=== PATIENT | male | born 1965 | race American Indian/Alaskan Native ===

== ENCOUNTER 2016-10-21 21:13 | Emergency (ER) | payer OTHER ==
[2016-10-21 22:38] LABS: Basophils % (Auto) 0.6 % (0.0-1.8); Eosinophils % (Auto) 6.6 % (0.0-4.3); Hemoglobin 14.4 gm/dl (11.8-15.2); Mean Corpuscular HGB Conc 33 % (32-34); Mean Corpuscular Hemoglobin 28 pg (28-32); Mean Corpuscular Volume 87 fl (84-94); Platelet Count 236 K/mm3 (140-440); Red Blood Count 5.06 M/mm3 (3.65-5.03); White Blood Count 5.9 K/mm3 (4.5-11.0)
[2016-10-21 23:00] LABS: Anion Gap 18 mmol/L; BUN/Creatinine Ratio 12.72; Blood Urea Nitrogen 14 mg/dL (9-20); Calcium 8.8 mg/dL (8.4-10.2); Carbon Dioxide 26 mmol/L (22-30); Glucose 102 mg/dL (75-100); Potassium 3.9 mmol/L (3.6-5.0); Sodium 139 mmol/L (137-145)
[2016-10-22] MEDS ORDERED: APRESOLINE IV ONE (04:41)
--- NOTE | 2016-10-22 04:47 | Emergency Department Report ---
ED General Adult HPI - General Chief complaint: Chest Pain Stated complaint: CHEST PAIN/SOB Time Seen by Provider: 10/22/16 03:43 Source: patient, RN notes reviewed, old records reviewed Mode of arrival: Ambulatory Limitations: No Limitations - History of Present Illness Initial comments: This is a 50-year-old male. He is previously unknown to me. Has a past medical history of hypertension, obesity, congestive heart failure, obstructive sleep apnea. He has a defibrillator. Echocardiogram done in 2013 demonstrated an ejection fraction of 25-30%. May also have a history of COPD. Patient presents to the ER complaining of shortness of breath and fatigue. It has been present for 3-4 days. Patient endorses slight increase in orthopnea. He typically sleeps on 2 pillows, and over the past few days have been sleeping on 3 pillows. There is no leg pain. No recent trips greater than 4 hours, no recent hospital admissions. He reports compliance with his blood pressure medications, with the exception of clonidine. He reports that he is on clonidine, 0.1 mg every 6 hours, but does not take it that frequently because he does not like the way it makes him feel. He has chronic discomfort over his left-sided defibrillator site for months. It is not new, worsening or different. He reports that he does not have a CPAP or BiPAP machine, and has not had a formal sleep study. -: Gradual Severity scale (0 -10): 0 Consistency: intermittent Improves with: rest Worsens with: movement Associated Symptoms: shortness of breath. denies: confusion, diaphoresis, fever /chills, headaches, loss of appetite - Related Data Previous Rx's Medication Instructions Recorded Last Taken Type Potassium Chloride [K-Dur] 20 meq PO QDAY #30 tablet 06/18/14 06/08/16 Rx cloNIDine [Catapres] 0.2 mg PO TID #90 tablet 06/18/14 06/08/16 Rx Carvedilol [Coreg] 12.5 mg PO BID #60 tablet 07/23/14 06/08/16 Rx Furosemide [Lasix] 40 mg PO BID #60 tablet 07/23/14 06/08/16 Rx Lisinopril [Zestril TAB] 40 mg PO QDAY #30 tablet 07/23/14 06/08/16 Rx Allergies Allergy/AdvReac Type Severity Reaction Status Date / Time No Known Allergies Allergy Verified 01/25/15 16:17 ED Review of Systems ROS: Stated complaint: CHEST PAIN/SOB Other details as noted in HPI Constitutional: malaise, weakness Eyes: denies: vision change ENT: denies: epistaxis Respiratory: shortness of breath Cardiovascular: dyspnea on exertion Gastrointestinal: denies: abdominal pain, nausea, diarrhea Genitourinary: denies: urgency, dysuria Musculoskeletal: denies: back pain, joint swelling, arthralgia Neurological: weakness. denies: headache, numbness, paresthesias, confusion, abnormal gait ED Past Medical Hx - Past Medical History Hx Hypertension: Yes Hx Heart Attack/AMI: Yes Hx Congestive Heart Failure: Yes Hx COPD: Yes Additional medical history: sleep apnea needs cpap - Surgical History Past Surgical History?: Yes Hx Pacemaker: Yes Hx Internal Defibrillator: Yes - Social History Smoking Status: Former Smoker Substance Use Type: None - Medications Home Medications: Home Medications Medication Instructions Recorded Confirmed Last Taken Type Potassium Chloride [K-Dur] 20 meq PO QDAY #30 tablet 06/18/14 07/18/14 06/08/16 Rx cloNIDine [Catapres] 0.2 mg PO TID #90 tablet 06/18/14 07/18/14 06/08/16 Rx Carvedilol [Coreg] 12.5 mg PO BID #60 tablet 07/23/14 06/08/16 Rx Furosemide [Lasix] 40 mg PO BID #60 tablet 07/23/14 06/08/16 Rx Lisinopril [Zestril TAB] 40 mg PO QDAY #30 tablet 07/23/14 06/08/16 Rx ED Physical Exam - General Limitations: No Limitations General appearance: alert, in no apparent distress - Head Head exam: Present: atraumatic, normocephalic - Eye Eye exam: Present: normal appearance, EOMI. Absent: nystagmus - ENT ENT exam: Present: normal exam, normal orophraynx, mucous membranes moist, normal external ear exam - Neck Neck exam: Present: normal inspection, full ROM. Absent: tenderness, meningismus - Respiratory Respiratory exam: Present: normal lung sounds bilaterally. Absent: respiratory distress, wheezes, rales, rhonchi, stridor, chest wall tenderness - Cardiovascular Cardiovascular Exam: Present: regular rate, normal rhythm, normal heart sounds. Absent: bradycardia, tachycardia, irregular rhythm, systolic murmur, diastolic murmur, rubs, gallop - GI/Abdominal GI/Abdominal exam: Present: soft, normal bowel sounds. Absent: distended, tenderness, guarding, rebound, rigid, pulsatile mass - Rectal Rectal exam: Present: deferred - Extremities Exam Extremities exam: Present: normal inspection, full ROM, normal capillary refill. Absent: tenderness, pedal edema, joint swelling, calf tenderness - Back Exam Back exam: Present: normal inspection, full ROM. Absent: tenderness, CVA tenderness (R), CVA tenderness (L), muscle spasm, paraspinal tenderness, vertebral tenderness - Neurological Exam Neurological exam: Present: alert, oriented X3, normal gait, other (Extraocular movements intact. Tongue midline. No facial droop. Facial sensation intact to light touch in the V1, V2, V3 distribution bilaterally. 5 and 5 strength in 4 extremities.. Sensation is intact to light touch in 4 extremities.). Absent : motor sensory deficit - Psychiatric Psychiatric exam: Present: normal affect, normal mood - Skin Skin exam: Present: warm, dry, intact, normal color. Absent: rash ED Course Vital Signs 10/21/16 10/21/16 21:32 21:38 Temperature 98.5 F Pulse Rate 78 76 Respiratory 18 16 Rate Blood Pressure 202/120 Blood Pressure 188/124 [Left] O2 Sat by Pulse 100 97 Oximetry - Reevaluation(s) Reevaluation #1: 10/22/16 04:44 Differential diagnosis: Chronic cardiomyopathy, obstructive sleep apnea, pulmonary hypertension, pneumonia, congestive heart failure, multifactorial shortness of breath Assessment and plan: 50-year-old male with shortness of breath that is acute on chronic. He is afebrile with reassuring vital signs, with the exception of elevated blood pressure. There are no pulmonary embolus or DVT risk factors, he is low risk by well's criteria, and he is perc negative. He has no crackles , rales or rhonchi. The patient is placed on a portable pulse oximeter, and I personally ambulated him around the emergency department, and he does not desaturate. He speaks in full sentences while walking at a brisk pace, and appears quite comfortable. X-ray of the chest is not consistent with pneumonia or congestive heart failure. His laboratory studies do not suggest this as well. His EKG is morphologically abnormal, appears essentially unchanged from his prior EKG, but I find the patient to be low risk by HEART score. Troponins are negative 3. His blood pressures improved with a dose of hydralazine. Most likely the patient's shortness of breath is multifactorial. I had an extensive discussion with the patient. Patient prefers to follow-up as an outpatient with his personal injury attorney, and reports that he will follow up with outpatient pulmonology for a sleep study. Through shared decision-making, and the patient and I have agreed to discharge him to follow-up with his outpatient personal injury attorney. Patient is reliable, understands that he is at low risk for major adverse cardiac event at this time. Furthermore, I discussed this plan of care with the covering personal injury attorney for his primary personal injury attorney, Dr. Little, who agreed. Patient will be discharged. ED Medical Decision Making - Lab Data Result diagrams: 10/21/16 22:13 10/21/16 22:13 Vital Signs 10/21/16 10/21/16 10/22/16 21:32 21:38 04:45 Temperature 98.5 F Pulse Rate 78 76 87 Respiratory 18 16 Rate Blood Pressure 202/120 187/125 Blood Pressure 188/124 [Left] O2 Sat by Pulse 100 97 Oximetry Lab Results 10/21/16 10/21/16 10/22/16 Range/Units 22:13 22:13 00:51 WBC 5.9 (4.5-11.0) K/mm3 RBC 5.06 H (3.65-5.03) M/mm3 Hgb 14.4 (11.8-15.2) gm/dl Hct 44.0 (35.5-45.6) % MCV 87 (84-94) fl MCH 28 (28-32) pg MCHC 33 (32-34) % RDW 16.0 H (13.2-15.2) % Plt Count 236 (140-440) K/mm3 Lymph % (Auto) 38.0 H (13.4-35.0) % [place] % (Auto) 11.8 H (0.0-7.3) % Eos % (Auto) 6.6 H (0.0-4.3) % Baso % (Auto) 0.6 (0.0-1.8) % Lymph # 2.2 (1.2-5.4) K/mm3 [place] # 0.7 (0.0-0.8) K/mm3 Eos # 0.4 (0.0-0.4) K/mm3 Baso # 0.0 (0.0-0.1) K/mm3 Seg Neutrophils % 43.0 (40.0-70.0) % Seg Neutrophils # 2.5 (1.8-7.7) K/mm3 Sodium 139 (137-145) mmol/L Potassium 3.9 (3.6-5.0) mmol/L Chloride 99.0 (98-107) mmol/L Carbon Dioxide 26 (22-30) mmol/L Anion Gap 18 mmol/L BUN 14 (9-20) mg/dL Creatinine 1.1 (0.8-1.5) mg/dL Estimated GFR > 60 ml/min BUN/Creatinine Ratio 12.72 % Glucose 102 H (75-100) mg/dL Calcium 8.8 (8.4-10.2) mg/dL Troponin T < 0.010 < 0.010 (0.00-0.029) ng/mL NT-Pro-B Natriuret Pep 285.7 (0-450) pg/mL - EKG Data 10/22/16 04:50 Normal sinus, 77 bpm, left axis deviation, left ventricular hypertrophy, T-wave inversions in the lateral leads. Appears essentially unchanged when compared to prior EKG from June 2016. - Radiology Data Radiology results: image reviewed interpreted by me: X-ray of the chest negative. Left-sided AICD device is noted. Critical care attestation.: If time is entered above; I have spent that time in minutes in the direct care of this critically ill patient, excluding procedure time. ED Disposition Clinical Impression: Hypertension, History of chronic CHF Disposition: DISCHARGED TO HOME OR SELFCARE Is pt being admited?: No Does the pt Need Aspirin: No Condition: Stable Instructions: Hypertension (ED), Heart Failure (ED), Pulmonary Edema (ED) Additional Instructions: Continue current outpatient blood pressure medications. Follow-up with her personal injury attorney within the next 3-5 days. Please note that your blood pressure was elevated. Long-term complications of elevated blood pressure includes stroke, heart attack, disability, , paralysis, permanent loss of quality of life. Follow up with the skin care specialist within the next week to [address] Hewitt is a skin care specialist, as is Dr. Phillips. return to the ER right away with severe chest pain, shortness of breath, intractable nausea or vomiting, inability to tolerate liquid feeds. Referrals: REJI ROSE MD [Primary Care Provider] - 3-5 Days CHRISTINE HEWITT MD [Staff Physician] - 3-5 Days ANNA BRONSON MD [Staff Physician] - 3-5 Days
[2016-10-22 05:17] VITALS: BP 145/88
--- NOTE | 2016-10-22 09:48 | XRay Report ---
CHEST 2 VIEWS: INDICATION: Dyspnea. COMPARISON: 06/08/2016 FINDINGS: Frontal and lateral chest radiographs, 3 images, demonstrate new left AICD with single ventricular lead. Stable cardiomediastinal silhouette. Clear lungs. Unremarkable bones. EKG leads. CONCLUSION: No acute disease with interval left-sided pacemaker placement, as described. Thank you for the opportunity to participate in this patient's care.
== END 2016-10-22 05:39 | disposition home or self-care (01) ==
LOC: ED 21:13
DX: I10 Essential (primary) hypertension (principal); I50.9 Heart failure, unspecified; I25.2 Old myocardial infarction; J44.9 Chronic obstructive pulmonary disease, unspecified; Z87.891 Personal history of nicotine dependence
CPT/HCPCS: 36415; 71020; 80048; 83880; 84484; 85025; 93005; 93010; 96374; 99285; J0360